=== PATIENT | female | born 1980 | race Caucasian/White ===

== ENCOUNTER → 2016-06-28 | Outpatient (CLI) | payer MEDICARE, OTHER | LOC: RAD 16:46 | DX: K59.00 Constipation, unspecified (principal) | CPT/HCPCS: 74000 ==

== ENCOUNTER 2020-07-16 02:45 | Emergency (ER) | payer MEDICARE ==
[~2020-07-16 02:45] MED LIST: BACTRIM DS TAB1 EACH PO; COLACE 100MG C100 MG PO; IBUPROFEN600 MG PO; KEFLEX CAP 500500 MG PO; LODINE CAP 300300 MG PO; NORCO 5-325 TA1 EACH PO
[2020-07-16 03:56] LABS: HEMOGLOBIN 14.5 gm/dl (12.3-15.3); RED BLOOD COUNT 4.53 M/UL (4.00-5.10); WHITE BLOOD COUNT 7.7 K/UL (4.5-11.0)
[2020-07-16 04:27] LABS: BUN/CREATININE RATIO 20 (0-10)
[2020-07-16] MEDS ORDERED: HYDROCHLOROTHIA25 MG PO (04:43)
== END 2020-07-16 05:00 | disposition home or self-care (01) ==
LOC: ER1 02:45
PROVIDERS: Family Medicine
DX: I10 Essential (primary) hypertension (principal)
CPT/HCPCS: 80053; 82550; 82553; 83874; 84484; 85025; 93005; 99283

== ENCOUNTER → 2020-09-08 | Outpatient (CLI) | payer MEDICARE ==
[~2020-09-08] MED LIST changes: +HYDROCHLOROTHIA25 MG PO
[2020-09-08 08:18] LABS: HEMOGLOBIN 15.7 gm/dl (12.3-15.3); RED BLOOD COUNT 4.85 M/UL (4.00-5.10); WHITE BLOOD COUNT 11.4 K/UL (4.5-11.0)
[2020-09-08 09:21] LABS: BUN/CREATININE RATIO 16 (0-10)
[2020-09-09 09:15] LABS: CREATININE, URINE 102.2 mg/dL (Not Estab.); MICROALB/CREAT RATIO <3 (0-29)
[2020-09-10 12:15] LABS: CHOLESTEROL, TOTAL 194 mg/dL (100-199); HDL SIZE 8.7 nm (>=9.2); HDL-C 45 mg/dL (>39); HDL-P (TOTAL) 31.6 umol/L (>=30.5); LARGE HDL-P 4.2 umol/L (>=4.8); LARGE VLDL-P 6.5 nmol/L (<=2.7); LDL SIZE 21.2 nm (>20.5); LDL SIZE 21.2 nm (>=20.8); LDL-C 124 mg/dL (0-99); LDL-P 1529 nmol/L (<1000); LP-IR SCORE 70 (<=45); SMALL LDL-P 508 nmol/L (<=527); TRIGLYCERIDES 142 mg/dL (0-149); VLDL SIZE 54.9 nm (<=46.6)
[2020-09-12 20:09] LABS: 25-HYDROXY, VITAMIN D-2 9.7 ng/mL (.)
== END ==
LOC: LAB 06:58
PROVIDERS: Emergency Medicine
DX: I10 Essential (primary) hypertension (principal); E78.2 Mixed hyperlipidemia; G47.09 Other insomnia; E11.9 Type 2 diabetes mellitus without complications
CPT/HCPCS: 36415; 80053; 80061; 82043; 82306; 82570; 83036; 83704; 84443; 84550; 85025

== ENCOUNTER → 2021-05-10 | Outpatient (CLI) | payer MEDICARE, OTHER ==
[2021-05-10 12:25] LABS: BUN/CREATININE RATIO 16 (0-10)
[2021-05-12 11:17] LABS: CHOLESTEROL, TOTAL 222 mg/dL (100-199); HDL SIZE 8.5 nm (>=9.2); HDL-C 44 mg/dL (>39); HDL-P (TOTAL) 29.5 umol/L (>=30.5); LARGE HDL-P 2.8 umol/L (>=4.8); LARGE VLDL-P 11.3 nmol/L (<=2.7); LDL-C 141 mg/dL (0-99); LDL-P 1810 nmol/L (<1000); LP-IR SCORE 87 (<=45); SMALL LDL-P 512 nmol/L (<=527); TRIGLYCERIDES 205 mg/dL (0-149); VLDL SIZE 55.5 nm (<=46.6)
== END ==
LOC: LAB 11:06
PROVIDERS: Emergency Medicine
DX: I10 Essential (primary) hypertension (principal); E78.2 Mixed hyperlipidemia; E11.69 Type 2 diabetes mellitus with other specified complication
CPT/HCPCS: 36415; 80053; 80061; 83036; 83704

== ENCOUNTER → 2021-10-07 | Outpatient (CLI) | payer MEDICARE ==
[2021-10-07 12:55] LABS: BUN/CREATININE RATIO 13 (0-10)
[2021-10-08 16:12] LABS: CHOLESTEROL, TOTAL 152 mg/dL (100-199); HDL SIZE 9.2 nm (>=9.2); HDL-C 47 mg/dL (>39); LARGE HDL-P 4.4 umol/L (>=4.8); LARGE VLDL-P 9.6 nmol/L (<=2.7); LDL SIZE 21.1 nm (>20.5); LDL SIZE 21.1 nm (>=20.8); LDL-C 73 mg/dL (0-99); LDL-P 889 nmol/L (<1000); LP-IR SCORE 72 (<=45); SMALL LDL-P 427 nmol/L (<=527); TRIGLYCERIDES 191 mg/dL (0-149); VLDL SIZE 62.7 nm (<=46.6)
== END ==
LOC: LAB 11:31
PROVIDERS: Emergency Medicine
DX: E78.2 Mixed hyperlipidemia (principal); I10 Essential (primary) hypertension; K21.9 Gastro-esophageal reflux disease without esophagitis; E11.65 Type 2 diabetes mellitus with hyperglycemia
CPT/HCPCS: 36415; 80053; 80061; 83036; 83704

== ENCOUNTER 2021-11-10 20:20 | Emergency (ER) | payer MEDICARE ==
[2021-11-10 22:53] LABS: HEMOGLOBIN 15.2 gm/dl (12.3-15.3); RED BLOOD COUNT 4.79 M/UL (4.00-5.10); WHITE BLOOD COUNT 13.9 K/UL (4.5-11.0)
[2021-11-10 23:17] LABS: BUN/CREATININE RATIO 17 (0-10)
== END 2021-11-11 02:34 | disposition home or self-care (01) ==
LOC: ER1 20:20
PROVIDERS: Physician Assistant
DX: K76.0 Fatty (change of) liver, not elsewhere classified (principal); E11.65 Type 2 diabetes mellitus with hyperglycemia; E66.01 Morbid (severe) obesity due to excess calories; Z79.4 Long term (current) use of insulin
CPT/HCPCS: 80053; 81001; 83690; 84703; 85025; 96374; 96375; 99284; J2270; J2405; Q9967